=== PATIENT | male | born 1980 | race Caucasian/White ===

== ENCOUNTER 2017-06-21 07:49 | Emergency (ER) | payer OTHER ==
[~2017-06-21] VITALS: Ht 177.8 cm; Wt 73.0 kg
[2017-06-21 08:11] LABS: Urine RBC None Seen /hpf (0 - 3)
[2017-06-21 08:20] LABS: Urine Bilirubin Negative (Negative); Urine Blood Negative /uL (Negative); Urine Color Yellow (Yellow); Urine Glucose Normal (Normal); Urine Mucus FEW (None Seen); Urine Nitrite Negative (Negative); Urine Squamous Epithelial Cell FEW /hpf (<5); Urine Urobilinogen Normal (Negative); Urine pH 6.5 (5.0-8.0)
[2017-06-21 08:21] LABS: Urine Ketone 3+ (Negative)
[2017-06-21 08:55] LABS: Basophils # (auto) 0 uL; Basophils % (auto) 0.2 % (0.0-2.0); CONDITION Y; Eosinophils # (auto) 0.1 uL; Eosinophils % (auto) 0.9 % (0.0-7.0); Hemoglobin 16.4 g/dL (13.5-17.5); Lymphocytes % (auto) 16.2 % (10.0-50.0); Mean Corpuscular Volume 85.2 fL (80.0-100.0); Mean Platelet Volume 9.4 fL (7.4-10.4); Monocytes # (auto) 0.3 uL; Monocytes % (auto) 5.9 % (0.0-12.0); Neutrophils # (auto) 4.5 uL; Neutrophils % (auto) 76.8 % (37.0-80.0); Platelet Count (auto) 251 10^3/uL (140-450); Red Cell Distribution Width 13.6 % (11.6-16.0); White Blood Cell 5.9 10^3/uL (4.4-10.8)
[2017-06-21 09:11] LABS: Albumin 4.2 g/dL (3.4-5.0); BUN/Creatinine Ratio 11.8; Bilirubin, Total 2.1 mg/dL (0.2-1.0); Calcium 9.4 mg/dL (8.5-10.1); Potassium 3.9 mmol/L (3.5-5.1); Total Protein 7.9 g/dL (6.4-8.2)
[2017-06-21] MEDS ORDERED: SODIUM CHLORIDE 0.9% 1,000 ML IV ONE ×2 (09:13)
[2017-06-21] MEDS ORDERED: CIPROFLOXACIN 400MG/200ML 200 ML IV ONE (09:15)
[2017-06-21] MEDS ORDERED: LORazepam 2MG/ML-1ML VIAL IV ONE (09:15)
[2017-06-21 09:47] VITALS: BP 115/82
[2017-06-21] MEDS ORDERED: DIPHENOXYLATE W/ATROPINE 2.5 MG TAB PO ONE (10:00)
== END 2017-06-21 10:51 | disposition home or self-care (01) ==
LOC: ER 07:57
DX: E86.0 Dehydration (principal); N39.0 Urinary tract infection, site not specified; Z88.0 Allergy status to penicillin; R63.0 Anorexia; Z68.23 Body mass index [BMI] 23.0-23.9, adult
CPT/HCPCS: 36415; 74176; 80053; 81001; 85025; 96361; 96365; 99285; J0744; J2060; J7030

== ENCOUNTER 2019-09-08 11:57 | Emergency (ER) | payer OTHER ==
[~2019-09-08] VITALS: Ht 180.3 cm; Wt 86.2 kg
[2019-09-08 13:23] VITALS: BP 126/76
[2019-09-08] MEDS ORDERED: KETOROLAC TROMETH 60MG/2ML VIAL IM ONE (13:30)
[2019-09-08] MEDS ORDERED: LIDOCAINE 1% HCL (LOCAL ANESTH.) INJ 20ML MDV IJ ONE (13:30)
[2019-09-08] MEDS ORDERED: BACITRACIN TOP OINT 1 UD PKG TOP ONE (15:30)
[2019-09-08] MEDS ORDERED: cefTRIAXone SOD 1,000 MG VL IM ONE (15:30)
== END 2019-09-08 15:45 | disposition home or self-care (01) ==
LOC: ER 12:00
DX: S62.631A Displaced fracture of distal phalanx of left index finger, initial encounter for closed fracture (principal); W23.0XXA Caught, crushed, jammed, or pinched between moving objects, initial encounter; Y93.89 Activity, other specified; Y92.89 Other specified places as the place of occurrence of the external cause; Y99.8 Other external cause status
CPT/HCPCS: 12001; 29130; 73140; 96372; 99283; J0696; J1885; J2001